=== PATIENT | male | born 1965 | race Two or more races ===

== ENCOUNTER 2017-01-28 10:53 | Emergency (ER) | payer MEDICARE, OTHER ==
[~2017-01-28] VITALS: Ht 177.8 cm; Wt 77.0 kg
[~2017-01-28 10:53] MED LIST: NADO20TA PO; ULTR50TA PO; ZOFR4TAB3 SL
[2017-01-28 10:55] VITALS: BP 139/97; PULSE 63; RESP 16; TEMP 97.5; O2SAT 98
[2017-01-28] MEDS ORDERED: NADO40TA PO (11:03)
[2017-01-28 11:30] LABS: AUTOMATED NEUTROPHIL # 2.7 TH/MM3 (1.8-7.7); BASOPHIL # 0.3 TH/MM3 (0-0.2); BASOPHIL % 5.4 % (0.0-2.0); EOSINOPHIL # 0.4 TH/MM3 (0-0.4); EOSINOPHIL % 7.7 % (0.0-4.0); HEMATOCRIT 45.9 % (39.0-51.0); LYMPH % 14.2 % (9.0-44.0); LYMPHOCYTE # 0.7 TH/MM3 (1.0-4.8); MEAN CELL VOLUME 87.8 FL (80.0-100.0); MEAN CORPUSCULAR HEMOGLOBIN 28.2 PG (27.0-34.0); MEAN CORPUSCULAR HGB CONC 32.2 % (32.0-36.0); MONO % 15.1 % (0.0-8.0); NEUT % 57.6 % (16.0-70.0); PLATELET COUNT 228 TH/MM3 (150-450); RED BLOOD COUNT 5.22 MIL/MM3 (4.50-5.90); RED CELL DISTRIBUTION WIDTH 14.3 % (11.6-17.2); WHITE BLOOD COUNT 4.8 TH/MM3 (4.0-11.0)
[2017-01-28 11:43] LABS: HEMO FLAGS AUTO DIFF
[2017-01-28 11:44] LABS: CHLORIDE 112 MEQ/L (98-107); POTASSIUM 3.9 MEQ/L (3.5-5.1); SODIUM (NA) 146 MEQ/L (136-145)
[2017-01-28 11:48] LABS: ANION GAP 7 MEQ/L (5-15); BICARBONATE 27.2 MEQ/L (21.0-32.0); BLOOD UREA NITROGEN 9 MG/DL (7-18)
[2017-01-28 11:51] LABS: ALT (GPT) 43 U/L (12-78); AST (GOT) 37 U/L (15-37)
--- NOTE | 2017-01-28 11:51 | PD ---
HPI Chief Complaint: Dizziness Time Seen by Provider: 11:29 Travel History International Travel<30 days: No Contact w/Intl Traveler<30days: No Traveled to known affect area: No History of Present Illness HPI This 51-year-old male says he was feeling dizzy earlier. By dizzy he means the room was spinning around. He says he has not had this before though review of old charts shows that he was here for some dizziness a couple of years ago. He has a history of cirrhosis. 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 He is on nadolol once daily. He says he took it today. He does have history of hypertension PFSH Past Medical History Arthritis: No Asthma: No Autoimmune Disease: No Blood Disorders: No Anxiety: No Depression: No Heart Rhythm Problems: No Cancer: No Cardiovascular Problems: No High Cholesterol: No Chemotherapy: No Chest Pain: No Congestive Heart Failure: No COPD: No Cerebrovascular Accident: No Diabetes: No Diminished Hearing: No Diverticulitis: Yes Endocrine: No Gastrointestinal Disorders: Yes ("LIVER DISEASE" DENIES HEPATITIS GI BLEED BEFORE) GERD: No Glaucoma: No Genitourinary: No Headaches: No Hepatitis: Yes Hiatal Hernia: No Heparin Induced Thrombocytopen: No Hypertension: No Immune Disorder: No Kidney Stones: No Musculoskeletal: No Neurologic: No Psychiatric: No Reproductive: No Respiratory: No Migraines: No Myocardial Infarction: No Radiation Therapy: No Renal Failure: No Seizures: No Sickle Cell Disease: No Sleep Apnea: No Thyroid Disease: No Ulcer: No Past Surgical History Abdominal Surgery: Yes AICD: No Appendectomy: No Arteriovenous Shunt: No Body Medical Devices: NONE Cardiac Surgery: No Cholecystectomy: No Ear Surgery: No Endocrine Surgery: No Eye Surgery: No Genitourinary Surgery: No Gynecologic Surgery: No Insulin Pump: No Joint Replacement: No Neurologic Surgery: No Oral Surgery: No Pacemaker: No Thoracic Surgery: No Other Surgery: No Social History Alcohol Use: No Tobacco Use: No Substance Use: No Allergies-Medications (Allergen,Severity, Reaction): Coded Allergies: No Known Allergies (Verified , NONE, NO ALLERGY, 01/28/17) Reported Meds & Prescriptions Reported Meds & Active Scripts Active Reported Nadolol 40 Mg Tab 40 Mg PO DAILY Review of Systems General / Constitutional: No: Fever, Chills Eyes: No: Diploplia HENT: Positive: Vertigo, No: Headaches Cardiovascular: No: Chest Pain or Discomfort, Palpitations Respiratory: No: Shortness of Breath, Wheezing Gastrointestinal: No: Nausea, Vomiting Genitourinary: No: Urgency, Frequency Musculoskeletal: No: Myalgias, Arthralgias Skin: No Rash, No Itching Neurologic: Positive: Dizziness Endocrine: No: Heat Intolerance Hematologic/Lymphatic: No: Easy Bruising Physical Exam Narrative GENERAL: Well-developed male. Heart rate is 50 SKIN: Focused skin assessment warm/dry. HEAD: Atraumatic. Normocephalic. EYES: Pupils equal and round. No scleral icterus. No injection or drainage. ENT: No nasal bleeding or discharge. Mucous membranes pink and moist. NECK: Trachea midline. No JVD. CARDIOVASCULAR: Regular rate and rhythm. No murmur appreciated. RESPIRATORY: No accessory muscle use. Clear to auscultation. Breath sounds equal bilaterally. GASTROINTESTINAL: Abdomen soft, non-tender, nondistended. Hepatic and splenic margins not palpable. There is a large scar in the right upper quadrant of the abdomen MUSCULOSKELETAL: No obvious deformities. No clubbing. No cyanosis. No edema. NEUROLOGICAL: Awake and alert. No obvious cranial nerve deficits. Motor grossly within normal limits. Normal speech. PSYCHIATRIC: Appropriate mood and affect; insight and judgment normal. Data Data Last Documented VS Vital Signs Date Time Temp Pulse Resp B/P Pulse Ox O2 Delivery O2 Flow Rate FiO2 01/28/17 10:59 16 99 Room Air 01/28/17 10:55 97.5 63 139/97 Orders Electrocardiogram (01/28/17 11:20) Complete Blood Count With Diff (01/28/17 11:20) Comprehensive Metabolic Panel (01/28/17 11:20) Labs Laboratory Tests Test 01/28/17 11:20 White Blood Count 4.8 TH/MM3 Red Blood Count 5.22 MIL/MM3 Hemoglobin 14.7 GM/DL Hematocrit 45.9 % Mean Corpuscular Volume 87.8 FL Mean Corpuscular Hemoglobin 28.2 PG Mean Corpuscular Hemoglobin 32.2 % Concent Red Cell Distribution Width 14.3 % Platelet Count 228 TH/MM3 Mean Platelet Volume 9.4 FL Neutrophils (%) (Auto) 57.6 % Lymphocytes (%) (Auto) 14.2 % Monocytes (%) (Auto) 15.1 % Eosinophils (%) (Auto) 7.7 % Basophils (%) (Auto) 5.4 % Neutrophils # (Auto) 2.7 TH/MM3 Lymphocytes # (Auto) 0.7 TH/MM3 Monocytes # (Auto) 0.7 TH/MM3 Eosinophils # (Auto) 0.4 TH/MM3 Basophils # (Auto) 0.3 TH/MM3 CBC Comment AUTO DIFF Differential Comment AUTO DIFF CONFIRMED Sodium Level 146 MEQ/L Potassium Level 3.9 MEQ/L Chloride Level 112 MEQ/L Carbon Dioxide Level 27.2 MEQ/L Anion Gap 7 MEQ/L Blood Urea Nitrogen 9 MG/DL Creatinine 0.77 MG/DL Estimat Glomerular Filtration 107 ML/MIN Rate Random Glucose 100 MG/DL Calcium Level 8.3 MG/DL Total Bilirubin 1.1 MG/DL Aspartate Amino Transf 37 U/L (AST/SGOT) Alanine Aminotransferase 43 U/L (ALT/SGPT) Alkaline Phosphatase 159 U/L Total Protein 7.0 GM/DL Albumin 3.2 GM/DL MDM Medical Decision Making Medical Screen Exam Complete: Yes Emergency Medical Condition: Yes Medical Record Reviewed: Yes Differential Diagnosis Differential includes vertigo, lightheadedness secondary to bradycardia. Narrative Course His EKG shows sinus bradycardia at a rate of 51. It is identical to a EKG that was done in 2015 including the rate. I have observed the patient and his rate has very from 49 to 60. He is not complaining of dizziness now. I suspect his dizziness may be related to the bradycardia which I believe is related to the nadolol. I recommended that he stop the nadolol. He should follow-up with his doctor who is in [facility] to see if he should substitute anything else Diagnosis Primary Impression: Dizziness Additional Impression: Bradycardia Additional Instructions: STOP NADOLOL Disposition: 01 DISCHARGE HOME Condition: Stable Brian Madsen MD January 28, 2017 11:51
[2017-01-28 11:52] LABS: GLOMERULAR FILTRATION RATE 107 ML/MIN (>89)
[2017-01-28 11:53] LABS: TOTAL BILIRUBIN ADULT 1.1 MG/DL (0.2-1.0)
[2017-01-28 11:54] LABS: ALKALINE PHOSPHATASE 159 U/L (45-117)
[2017-01-28 12:00] LABS: SCAN/DIFF AUTO DIFF CONFIRMED
[2017-01-28 12:40] VITALS: BP 122/86
--- NOTE | 2017-01-28 15:03 | EKG ---
Date Performed: 01/28/2017 Time Performed: 11:20:12 PTAGE: 51 years EKG: Sinus bradycardia Inferior T wave changes are nonspecific Borderline ECG NO SIGNIFICANT MARLY NGE FROM PRIOR ELECTROCARDIOGRAM. PREVIOUS TRACING : 04/27/2015 13.53 DOCTOR: Shaheen Snider Interpretating Date/Time 01/28/2017 15:01:32
== END 2017-01-28 12:49 | disposition home or self-care (01) ==
LOC: PHED 10:53
DX: R42 Dizziness and giddiness (principal); R00.1 Bradycardia, unspecified
CPT/HCPCS: 80053; 85025; 93005